=== PATIENT | male | born 1960 | race Two or more races ===

== ENCOUNTER 2020-11-23 18:17 | Inpatient (IN) | payer OTHER ==
[~2020-11-23] VITALS: Ht 172.7 cm; Wt 81.6 kg
[2020-11-23] MEDS ORDERED: PERCOCET 5-3251 EACH (18:40)
[2020-11-23] MEDS ORDERED: HYDRALAZINE HCL25 MG (18:40)
[2020-11-23] MEDS ORDERED: DURAGESIC1 EAC1 SUBCUTANEO (18:41)
[2020-11-23] MEDS ORDERED: VITACEL TABLET1 EACH (18:42)
[2020-11-23] MEDS ORDERED: ALBUTEROL1.25 MG/3 (18:42)
[2020-11-23] MEDS ORDERED: SINGULAIR4 MG (18:42)
[2020-11-23] MEDS ORDERED: PEPCID AC20 MG (18:43)
[2020-11-23] MEDS ORDERED: LASIX20 MG (18:43)
[2020-11-24] MEDS ORDERED: SYMBICORT 16010.2 GM (16:45)
[2020-11-24] MEDS ORDERED: OMEPRAZOLE40 MG (16:45)
[2020-11-24] MEDS ORDERED: ATORVASTATIN CA10 MG (16:46)
[2020-11-24] MEDS ORDERED: FERROUS SULFAT325 MG (16:46)
[2020-11-29] MEDS ORDERED: ZOFRAN8 MG PO (09:47)
[2020-11-29] MEDS ORDERED: ROXICODONE5 MG PO (09:47)
[2020-11-29] MEDS ORDERED: GABAPENTIN300 MG PO (09:47)
[2020-11-29] MEDS ORDERED: FAMOTIDINE20 MG PO (09:47)
[2020-11-29] MEDS ORDERED: LIDODERM1 EACH TOP (09:47)
== END 2020-11-29 11:02 | disposition home or self-care (01) | DRG 683 ==
LOC: ER 18:17 → SURH 22:45 → SEC-K 22:45 → SURH 11-24 17:10
PROVIDERS: ADMIT Internal Medicine; ATTEND Internal Medicine
PROC: 30233N1 Transfusion of Nonautologous Red Blood Cells into Peripheral Vein, Percutaneous Approach (ICD-10-PCS; principal; 2020-11-24)
PROC: CB2YYZZ Tomographic (Tomo) Nuclear Medicine Imaging of Respiratory System using Other Radionuclide (ICD-10-PCS; 2020-11-24)
PROC: C51BYZZ Planar Nuclear Medicine Imaging of Right Lower Extremity Veins using Other Radionuclide (ICD-10-PCS; 2020-11-25)
DX: I12.9 Hypertensive chronic kidney disease with stage 1 through stage 4 chronic kidney disease, or unspecified chronic kidney disease (principal); N18.30 Chronic kidney disease, stage 3 unspecified; D63.8 Anemia in other chronic diseases classified elsewhere; N39.0 Urinary tract infection, site not specified; N17.8 Other acute kidney failure; C67.9 Malignant neoplasm of bladder, unspecified; R53.1 Weakness; D50.8 Other iron deficiency anemias; E86.0 Dehydration; E87.5 Hyperkalemia; Z20.822 Contact with and (suspected) exposure to COVID-19